=== PATIENT | male | born 1995 | race Asian ===

== ENCOUNTER 2020-06-20 20:57 | Emergency (ER) | payer MEDICAID ==
[~2020-06-20] VITALS: Ht 165.1 cm; Wt 100.0 kg
[2020-06-20] MEDS ORDERED: IPRATROPIUM BROMIDE 0.5 MG/2.5 ML NEB SOLUTION NEB ONE (21:30)
[2020-06-20] MEDS ORDERED: PredniSONE 20 MG TABLET PO ONE (21:30)
[2020-06-20] MEDS ORDERED: ALBUTEROL SULFATE 5 MG/ML 20 ML NEB SOLN [BULK] NEB ONE (21:30)
[2020-06-20] MEDS ORDERED: ALBUTEROL SULFATE HFA 90 MCG/PUFF 8 GM INHALER IH ONE (22:30)
[2020-06-20 22:36] VITALS: BP 150/95
== END 2020-06-20 22:38 | disposition home or self-care (01) ==
LOC: EMS 20:57
DX: J45.909 Unspecified asthma, uncomplicated (principal); F17.210 Nicotine dependence, cigarettes, uncomplicated
CPT/HCPCS: 94644; 99285; 99406; J7512; J3535